=== PATIENT | female | born 1955 | race Caucasian/White ===

== ENCOUNTER 2023-09-25 11:30 | Outpatient (RCR) | payer MEDICARE, OTHER, SELFPAY ==
--- NOTE | 2023-07-15 12:45 | HP.PTEVAL_ITS ---
Patient's Visit Information Visit Information Visit Information: AKBAR CASTAÑEDA is a 68 year old F referred to Physical Therapy by Dr. Roslyn Vargas MD with a diagnosis of OAB AND MIXED URINARY INCONTINENCE. Date of Evaluation: 07/15/23 Physical Therapist: Florinda Blunt PT, Cert MDT Visit Plan Frequency: 1x/Week Duration: 2-4 Months Plan: PF THERAPY FOR STRENGTHENING, LENGTHENING/RELAXATION AND ENDURANCE TRAINING. URINARY URGE AND FREQUENCY EDUCATION. HEALTHY BLADDER HABIT EDUCATION. TRAINING IN COORDINATION OF PELVIC FLOOR MUSCULATURE WITH HIP AND CORE (TRANSVERSE ABDOMINUS) MUSCULATURE. CORE STRENGTHENING. CHRIS LE ROM, STRETCHING AND STRENGTHENING. TRAINING IN ABDOMINAL CAVITY PRESSURE MGMT WITH ADL'S. Subjective Subjective: Work/Leisure: RETIRED Disability: NO Present symptoms: SOME URINARY LEAKING AND GETTING UP AT NIGHT TO URINATE. SOMETIMES CAN'T GET TO THE BATHROOM IN TIME. SOMETIMES BLADDER PRESSURE. I TRY RUNNING IN THE HOUSE AND SOMETIMES I HAVE SOME INCONTINENCE. Present since: OVER 40 YEARS Pain Scale: NO PAIN. SOMETIMES MILD PRESSURE IN LOWER ABDOMINAL AREA WHEN BLADDER IS FULL OR GETTING FULL. Currently: PATIENT REPORTS SHE CAN NOT RATE IT ON A PAIN SCALE. Is it getting better, worse or staying the same: GETTING BETTER. Commenced as a result of: NO APPARENT REASON Worse: GETTING SWIM SPA, WAITING TOO LONG (3 HOURS), WHEN HAVING CONSTIPATION. SNEEZING HARD. Better: GEMTESA (STARTED IT ABOUT 2 WKS AGO) Disturbed sleep: GETTING UP TO URINATE 2-3 TIMES A NIGHT BEFORE STARTING GEMTESA AND GETTING UP ABOUT 1 TIME A NIGHT NOW. Previous history/Previous treatment: OTHER MEDICATIONS Treatment this episode: GEMTESA. ANTIBIOTIC FOR STREP INFECTION FOUND ON URINALYSIS. Gait: CHRIS KNEE PAIN - TKR'S PENDING STARTING NEXT YEAR. How long can you delay the need to urinate: SOMETIMES 30 MINUTES TO AN HOUR. Prolapse (Falling out feeling): DX'S WITH SLIGHT RECTOCELE PER PATIENT REPORT. Frequency of Urination: AT LEAST EVERY 3 HOURS Ability to stop urine flow: SOMETIMES Ability to initiate urine stream: YES Dyspareunia: N/A Bowel Incontinence: NO Accidents: NO Unexplained weight loss: NO Imaging: CYSTOSCOPY ABOUT 4 YEARS AGO THAT WAS NORMAL PER PATIENT REPORT. PMH/Recent major surgery: Esophageal ULCER possibly FROM ARTHRITIS MEDICINE SO HAS DECREASED MEDICINE THEREFORE INCREASED ARTHRITIS PAIN. Objective Objective: Sitting/Standing Posture: POOR. FH. RSH'S. INCREASED LUMBAR LORDOSIS. NO RELEVANT LATERAL SHIFT. Other Observations: INDEP GAIT INTO PT WITHOUT ANY ASSISTIVE DEVICES OR LOB BUT WITH WIDE BASE OF SUPPORT AND DECREASED CADANCE. INDEP TRANSFERS SIT TO STAND WITH UE ASSIST. Sensory deficit: CHRIS LE LIGHT TOUCH SENSATION IS GROSSLY INTACT AND SYMMETRICAL ROM deficit: L KNEE FLEX TO 105 DEG AND -15 DEG EXT, R KNEE FLEX 120 DEG AND - 10 DEG EXT. TIGHT CHRIS HIP ROTATORS AND HIP ADDUCTORS. PATIENT ALSO HAS TIGHT HS'S AND GASTROC-SOLEUS COMPLEX'S. Motor deficit: R LE: HIP 4/5, KNEE 4-/5, ANKLE 5/5. L LE: HIP 4-/5, KNEE 3+/5, ANKLE 5/5. PELVIC FLOOR. SUBJECTIVELY PATIENT APPEARS TO HAVE 4/5 PF STRENGTH WITH 10 SEC ENDURANCE X 1 REP. Dural Signs: NEGATIVE CHRIS LE'S. Lumbar mvmt loss: flex - NIL ext - DARIEL R SG - MOD L SG - MOD PATIENT DENIES PAIN WITH LUMBAR ROM TESTING ALL PLANES Core strength: POOR FUNCTIONAL SCREEN: Incontinence Impact Questionnaire Score: 0 Urogenital Distress Inventory Score: 8 TREATMENT: INITIATED HEP WITH QUICK FLICK KEGELS X 8, 3 TIMES A DAY. PATIENT COMMUNICATED A GOOD UNDERSTANDING OF INSTRUCTIONS AFTER GIVEN. Goals Goal 1:: DECREASE URINARY LEAKAGE EPISODES TO ONE OR LESS PER DAY Goal Time Frame: 8-12 Weeks Goal 2:: PATIENT WILL SUCCESSFULLY DELAY VOIDING LONG NEEDED WHEN URGENCY OCCURS TO SUCCESSFULLY MAKE IT TO THE BATHROOM. Goal Time Frame: 6-8 Weeks Goal 3:: PATIENT WILL DEMONSTRATE/COMMUNICATE 10 CONSISTENT AND CONSECUTIVE 10 SECOND PELVIC FLOOR MUSCLE CONTRACTIONS TO DEMONSTRATE IMPROVED PELVIC FLOOR ENDURANCE. Goal Time Frame: 8-12 Weeks Goal 4:: DEVELOP HEALTHY FLUID INTAKE HABITS WITH FLUID INTAKE OF ? BODY WEIGHT IN OUNCES PER DAY AND 2/3 BEING WATER. Goal 5:: NORMALIZE VOIDING FREQUENCEY TO EVERY 3-4 HOURS. Goal Time Frame: 2-4 Weeks Goal 6:: PATIENT WILL BE INDEP WITH A HEP/HOME INSTRUCTIONS FOR CONTINUED IMPROVEMENT ONCE FORMAL PHYSICAL THERAPY CONCLUDES. Goal Time Frame: 8-12 Weeks Anticipated Interventions Patient/Client Instruction: Educate patient on: Condition, Plan of Care and Risk Factors For the Purpose of:: To improve self management Therapeutic Exercise to Include: Strength training, Endurance training, Flexibilty training and Neuromotor development For the Purpose of:: To increase ROM, To improve muscle performance and motor function, To increase tolerance to activity/condition/position and To improve ability of physical actions for home/community/work/leisure Text: Thank you for the opportunity to evaluate your patient. For Medicare and Medicare HMO plans, please review the plan of care and approve it. It will need to be FAXED BACK to us at [phone] for Medicare purposes. For Medicare only, by signing this I certify the plan of care. Please let me know if there are questions or concerns regarding this plan of care. Physician Signature: Date:
--- NOTE | 2023-09-25 12:07 | HP.PTDCSUM ---
Discharge Summary D/C summary: It has been my pleasure to treat AKBAR CASTAÑEDA referred by Dr. Roslyn Vargas MD, with the diagnosis of OAB AND MIXED URINARY INCONTINENCE for a total of 9 visit(s). Discharge Date: 09/25/23 Please see the following information for a summary of their discharge status. Subjective Subjective: PATIENT REPORTS THAT SHE FEELS LIKE BETWEEN PHYSICAL THERAPY AND THE MEDICATION HER UI HAS BEEN RESOLVED. SHE STATES SHE HAS BEEN COMPLIANT WITH HER HEP BUT HAS A QUESTION ABOUT ONE OF THE EX'S. Overall Improvement % Improvement: 100 Objective Objective/Function: PATIENT WAS SEEN TODAY FOR RE-ASSESSMENT OF PROGRESS TOWARD THE SET PT GOALS AND THE NEED FOR FURTHER PHYSICAL THERAPY VS READINESS FOR DISCHARGE. UPON EXAM TODAY: ALL GOALS HAVE BEEN MET. PATIENT IS INDEP WITH A HEP (MINIMAL CUES GIVEN FOR PIRIFORMIS STRETCHING TODAY) AND APPROPRIATE FOR AND AGREEABLE TO D/C. FUNCTIONAL SCREEN: Incontinence Impact Questionnaire Score: 0 Urogenital Distress Inventory Score: 0 Goals Goal 1:: DECREASE URINARY LEAKAGE EPISODES TO ONE OR LESS PER DAY Goal Progress: Goal Met Goal 2:: PATIENT WILL SUCCESSFULLY DELAY VOIDING LONG NEEDED WHEN URGENCY OCCURS TO SUCCESSFULLY MAKE IT TO THE BATHROOM. Goal Progress: Goal Met Goal 3:: PATIENT WILL DEMONSTRATE/COMMUNICATE 10 CONSISTENT AND CONSECUTIVE 10 SECOND PELVIC FLOOR MUSCLE CONTRACTIONS TO DEMONSTRATE IMPROVED PELVIC FLOOR ENDURANCE. Goal Progress: Goal Met Goal 4:: DEVELOP HEALTHY FLUID INTAKE HABITS WITH FLUID INTAKE OF ? BODY WEIGHT IN OUNCES PER DAY AND 2/3 BEING WATER. Goal Progress: Goal Met Goal 5:: NORMALIZE VOIDING FREQUENCEY TO EVERY 3-4 HOURS. Goal Progress: Goal Met Goal 6:: PATIENT WILL BE INDEP WITH A HEP/HOME INSTRUCTIONS FOR CONTINUED IMPROVEMENT ONCE FORMAL PHYSICAL THERAPY CONCLUDES. Goal Progress: Goal Met Plan Plan: D/C D/C Information d/c sentence: If there are questions or concerns regarding this patient's physical therapy, please feel free to call me at [phone]. Thank you for the referral of this patient. Sincerely, Florinda Blunt, PT, Cert MDT Balance/Gait/Functional tests Improvement % Improvement: 100
== END 2023-09-25 19:00 | disposition home or self-care (01) ==
LOC: PT 11:30
PROVIDERS: Referring Provider Urology; Visit Provider Urology
DX: N32.81 Overactive bladder (principal); N39.3 Stress incontinence (female) (male)
CPT/HCPCS: 97162; 97164; 97530